=== PATIENT | male | born 1975 | race Caucasian/White ===

== ENCOUNTER 2024-03-01 01:44 | Emergency (ER) | payer OTHER ==
[2024-03-01 01:51] VITALS: RESP 18; TEMP 97.9
--- NOTE | 2024-03-01 03:45 | ED ---
Psych HPI - General Source: patient Mode of arrival: wheelchair <Wendy Johns - Last Filed: 03/01/24 05:07> <Darin Verma - Last Filed: 03/01/24 12:05> - General Chief Complaint: Psychiatric Symptoms Stated Complaint: petition Time Seen by Provider: 03/01/24 01:54 - History of Present Illness Initial Comments: 49-year-old male presenting for mental health evaluation. He is brought in by his brother. His brother tells me that the patient smoked crack and used heroin. This has been an ongoing issue with addiction for many years. The patient's brother is petitioned today for threatening violence to his family members, he is concerned for the safety of others as well as the patient. Patient has also been experiencing auditory hallucinations. (Wendy Johns) - Related Data Allergies Allergy/AdvReac Type Severity Reaction Status Date / Time Penicillins Allergy Rash/Hives Verified 03/01/24 09:55 Review of Systems ROS Other: All systems not noted in ROS Statement are negative. <Wendy Johns - Last Filed: 03/01/24 05:07> ROS Other: All systems not noted in ROS Statement are negative. <Darin Verma - Last Filed: 03/01/24 12:05> ROS Statement: Those systems with pertinent positive or pertinent negative responses have been documented in the HPI. Past Medical History Additional Past Medical History / Comment(s): OCD History of Any Multi-Drug Resistant Organisms: None Reported Past Psychological History: Depression Smoking Status: Current every day smoker Past Alcohol Use History: Occasional Past Drug Use History: Cocaine, Heroin, IV Drug Use, Opiates <Wendy Johns - Last Filed: 03/01/24 05:07> General Exam General appearance: alert, appears intoxicated Head exam: Present: atraumatic, normocephalic Eye exam: Present: normal appearance Neck exam: Present: normal inspection Respiratory exam: Absent: respiratory distress Cardiovascular Exam: Present: regular rate Neurological exam: Present: alert, oriented X3 (Intoxicated) Skin exam: Present: normal color <Wendy Johns - Last Filed: 03/01/24 05:07> Course Vital Signs 03/01/24 01:48 Temperature 97.9 F Pulse Rate 62 Respiratory 18 Rate Blood Pressure 121/85 O2 Sat by Pulse 98 Oximetry Medical Decision Making <Wendy Johns - Last Filed: 03/01/24 05:07> <Darin Verma - Last Filed: 03/01/24 12:05> - Medical Decision Making Was pt. sent in by a medical professional or institution (, [facility], [facility], urgent care, hospital, or intermediate...) When possible be specific @ -[No] Did you speak to anyone other than the patient for history (EMS, parent, family, police, friend...)? What history was obtained from this source @ -Patient's brother Did you review nursing and triage notes (agree or disagree)? Why? @ -[I reviewed and agree with nursing and triage notes] Were old charts reviewed (outside hosp., previous admission, EMS record, old EKG, old radiological studies, urgent care reports/EKG's, intermediate records)? Report findings @ -[No old charts were reviewed] Differential Diagnosis (chest pain, altered mental status, abdominal pain women, abdominal pain men, vaginal bleeding, weakness, fever, dyspnea, syncope, headache, dizziness, GI bleed, back pain, seizure, CVA, palpatations, mental health, musculoskeletal)? @ -Differential Mental Health Depression, anxiety, bipolar, psychosis, schizophrenia, borderline personality, situational depression, adjustment disorder, behavioral disorder, brain tumor, malingering, substance abuse, encephalopathy, medication reaction, dementia, hypothyroidism, degenerative neurologic disorder, lupus.... This is not meant to be all-inclusive list EKG interpreted by me (3pts min.). @ -[As above] X-rays interpreted by me (1pt min.). @ -[None done] CT interpreted by me (1pt min.). @ -[None done] U/S interpreted by me (1pt. min.). @ -[None done] What testing was considered but not performed or refused? (CT, X-rays, U/S, labs)? Why? @ -[None] What meds were considered but not given or refused? Why? @ -[None] Did you discuss the management of the patient with other professionals (professionals i.e. , [facility], MA[employer]GER [employer], lab, RT, psych nurse, social work faculty member, directory operator, teacher, gift officer, casework specialist)? Give summary @ -[No] Was smoking cessation discussed for >3mins.? @ -[No] Was critical care preformed (if so, how long)? @ -[No] Were there social determinants of health that impacted care today? How? (Home lessness, low income, unemployed, alcoholism, drug addiction, transportation, low edu. Level, literacy, decrease access to med. care, fci, rehab)? @ -Polysubstance use Was there de-escalation of care discussed even if they declined (Discuss DNR or withdrawal of care, Hospice)? DNR status @ -[No] What co-morbidities impacted this encounter? (DM, HTN, Smoking, COPD, CAD, Cancer, CVA, ARF, Chemo, Hep., AIDS, mental health diagnosis, sleep apnea, morbid obesity)? @ -[None] Was patient admitted / discharged? Hospital course, mention meds given and route, prescriptions, significant lab abnormalities, going to OR and other pertinent info. @ -49-year-old male with history of polysubstance use petitioned by his brother for mental health evaluation. He has been acting violent, the patient's br other is concerned for the safety of the patient and others. Patient is resting comfortably showing no acute signs of distress. He is awaiting evaluation by EPS Undiagnosed new problem with uncertain prognosis? @ -[No] Drug Therapy requiring intensive monitoring for toxicity (Heparin, Nitro, Insulin, Cardizem)? @ -[No] Were any procedures done? @ -[No] Diagnosis/symptom? @ -[default] Acute, or Chronic, or Acute on Chronic? @ -[default] Uncomplicated (without systemic symptoms) or Complicated (systemic symptoms)? @ -[default] Side effects of treatment? @ -[No] Exacerbation, Progression, or Severe Exacerbation? @ -[No] Poses a threat to life or bodily function? How? (Chest pain, [place], [place], pneumonia, PE, COPD, DKA, ARF, appy, cholecystitis, CVA, Diverticulitis, Homicidal, Suicidal, threat to staff... and all critical care pts) @ -[No] (Wendy Johns) Patient care signed out to me. Plan at signout was to follow-up with pending EPS evaluation. Patient evaluated by EPS recommended discharge with safety plan. Patient stable (Darin eVrma) Disposition <Wendy Johns - Last Filed: 03/01/24 05:07> Is patient prescribed a controlled substance at d/c from ED?: No Time of Disposition: 12:05 <Darin Verma - Last Filed: 03/01/24 12:05> Clinical Impression: Mental health-related complaint Disposition: HOME SELF-CARE Condition: Good Referrals: None,Stated [Primary Care Provider] - 1-2 days
[2024-03-01 12:44] VITALS: BP 141/78; PULSE 58
== END 2024-03-01 12:44 | disposition home or self-care (01) ==
LOC: EC 01:44
CPT/HCPCS: 82075; 99284